=== PATIENT | male | born 1985 | race Caucasian/White ===

== ENCOUNTER 2024-02-06 11:34 | Day surgery (SDC) | payer OTHER ==
[~2024-02-06] VITALS: Ht 170.2 cm; Wt 99.8 kg
[2024-02-06 12:50] VITALS: O2SAT 89
[2024-02-06] MEDS ORDERED: METOCLOPRAMIDE HCL 10 MG/2 ML VIAL IVP PRN (13:30)
[2024-02-06] MEDS ORDERED: HYDROmorphone 1 MG/ML INJ. CARTRIDGE IVP PRN (13:30)
[2024-02-06] MEDS ORDERED: MEPERIDINE HCL/PF 25 MG/ML DISP.SYRIN IVP PRN (13:30)
[2024-02-06] MEDS ORDERED: LABETALOL 100 MG/ 20ML VIAL IVP PRN (13:30)
[2024-02-06] MEDS ORDERED: hydrALAZINE HCL 20 MG/ML VIAL IVP PRN (13:30)
[2024-02-06] MEDS ORDERED: LR 1,000 ML IV SCH (13:30)
[2024-02-06] MEDS ORDERED: MIDAZOLAM HCL 2 MG/2 ML VIAL (VERSED) IVP PRN (13:30)
[2024-02-06] MEDS ORDERED: ACETAMINOPHEN I.V. 1000 MG 100 ML IV ONE (13:38)
[2024-02-06] MEDS ORDERED: CEFAZOLIN 2 GM IVPB PREMIX 50 ML IV ONE (14:26)
[2024-02-06] MEDS ORDERED: HYDROmorphone 1 MG/ML INJ. CARTRIDGE ONE (15:40)
[2024-02-06] MEDS: HYDROmorphone 1 MG/ML INJ. CARTRIDGE IVP PRN (15:48)
[2024-02-06 17:32] VITALS: BP_SYST 123; PULSE 80; RESP 16
== END 2024-02-06 16:48 | disposition home or self-care (01) ==
LOC: SDS 11:34 → SMU 11:36 → SDS 16:48
PROVIDERS: ATTEND Student in an Organized Health Care Education/Training Program
DX: M25.561 Pain in right knee (principal); D17.23 Benign lipomatous neoplasm of skin and subcutaneous tissue of right leg; M25.572 Pain in left ankle and joints of left foot; F12.90 Cannabis use, unspecified, uncomplicated; M19.90 Unspecified osteoarthritis, unspecified site
CPT/HCPCS: 87081; 29876; 20605; 88304; J3490; J0690; J1100; J0171; J2250; J2405; J2704; J3301; J3010; J1170; J7120; J0131; 88305; 88311